=== PATIENT | male | born 1980 ===

== ENCOUNTER → 2016-04-15 | Outpatient (CLI) | payer OTHER ==
--- NOTE | 2016-04-15 11:02 | DX ---
Lumbar Spine, Four Views Indication: Pain. Evaluate for instability. Technique: Upright AP, , obliques and lateral view Findings: Five nonrib-bearing lumbar vertebral bodies are anatomically aligned. No acute fracture or pars defect. Minimal degenerative disk disease at L5-S1 is evidenced by minimal disk height loss. Dis k heights are otherwise well-preserved. Bowel pattern normal. Impression: Negative. No acute fracture.
== END ==
LOC: BMCIMAGING 10:26
PROVIDERS: ATTEND Family Medicine
DX: M54.5 Low back pain (principal)